=== PATIENT | male | born 1990 ===

== ENCOUNTER → 2019-04-06 | Outpatient (CLI) | payer BC ==
[2019-04-06 15:10] LABS: Basophils # (auto) 0 uL; Basophils % (auto) 0.4 % (0.0-2.0); Eosinophils # (auto) 0.1 uL; Eosinophils % (auto) 1.2 % (0.0-7.0); Hematocrit 45.4 % (41.0-53.0); Hemoglobin 15.6 g/dL (13.5-17.5); Lymphocytes # (auto) 0.9 uL; Mean Corpuscular Hemoglobin 27.8 pg (28.0-32.0); Mean Corpuscular Hgb Conc. 34.2 g/dL (32.0-36.0); Mean Corpuscular Volume 81.1 fL (80.0-100.0); Monocytes # (auto) 0.7 uL; Monocytes % (auto) 7.4 % (0.0-12.0); Neutrophils # (auto) 7.4 uL; Nucleated Red Blood Cells % 0.1 %; Platelet Count (auto) 223 10^3/uL (140-450); White Blood Cell 9.1 10^3/uL (4.4-10.8)
[2019-04-06 15:14] LABS: Urine Bacteria FEW /hpf (None Seen); Urine Blood Negative /uL (Negative); Urine Specific Gravity 1.021 (1.001-1.035); Urine Sperm PRESENT /hpf (None Seen); Urine WBC 2 /hpf (0 - 3)
[2019-04-06 15:26] LABS: Albumin 3.7 g/dL (3.4-5.0); BUN/Creatinine Ratio 10.9; Calcium 8.7 mg/dL (8.5-10.1)
[2019-04-06 15:30] LABS: Bilirubin, Total 1.3 mg/dL (0.2-1.0)
[2019-04-07 05:07] LABS: RPR Non Reactive (Non Reactive)
[2019-04-09 10:05] LABS: Hepatitis B Surface Antibody Positive
[2019-04-09 10:42] LABS: Hepatitis A Total Antibody Positive
[2019-04-09 14:04] LABS: Hepatitis B Core Total AB Negative
[2019-04-09 14:05] LABS: Hepatitis B Surface Antigen Negative (Negative); Hepatitis C Antibody Negative (Negative)
== END | disposition home or self-care (01) ==
LOC: LAB 14:25
PROVIDERS: ATTEND Physician Assistant
DX: Z11.3 Encounter for screening for infections with a predominantly sexual mode of transmission (principal); R35.1 Nocturia; R43.0 Anosmia
CPT/HCPCS: 36415; 80053; 80061; 81001; 85025; 86592; 86703; 86704; 86706; 86708; 86803; 87340